=== PATIENT | male | born 1940 | race Caucasian/White ===

== ENCOUNTER 2016-07-28 09:58 | Outpatient (RCR) | payer MEDICARE, OTHER | END 2016-08-08 09:41 | disposition home or self-care (01) | LOC: PT 09:58 | DX: M54.16 Radiculopathy, lumbar region (principal) ==

== ENCOUNTER 2020-10-04 03:33 | Emergency (ER) | payer MEDICARE, OTHER ==
[2020-10-04 03:53] LABS: HEMATOCRIT 34.7 % (42.0-52.0); HEMOGLOBIN 11.2 g/dL (13.5-18.0); MEAN CELL VOLUME 93 fl (78-100); MEAN CORPUSCULAR HEMOGLOBIN 30 pg (27-31); MEAN CORPUSCULAR HGB CONC 32 g/dL (33-37); MEAN PLATELET VOLUME 10.1 fl (7.4-10.4); MONO # 0.5 (0.20-0.80); PLATELET COUNT 250 K/mm3 (130-400); RED BLOOD COUNT 3.72 M/mm3 (4.20-5.60); RED CELL DISTRIBUTION WIDTH 14.4 % (11.5-14.5)
[2020-10-04 03:58] LABS: LYMPH# 7.4 (1.50-4.00)
[2020-10-04 04:03] LABS: ALBUMIN 4.3 g/dL (3.4-4.8)
[2020-10-04 04:04] LABS: CALCIUM 9.6 mg/dL (8.3-10.5)
[2020-10-04 04:06] LABS: TOTAL PROTEIN 7.7 g/dL (6.2-8.1)
[2020-10-04 04:07] LABS: TOTAL BILIRUBIN 0.3 mg/dL (0.2-1.2)
[2020-10-04] MEDS ORDERED: LOSARTAN POTASS50 M1 PO (04:16)
[2020-10-04] MEDS ORDERED: HCTZ 25MG25 MG PO (04:16)
[2020-10-04 08:31] VITALS: BP 157/74
[2020-10-05] MEDS ORDERED: ZOFRAN ODT4 MG PO (08:39)
[2020-10-05] MEDS ORDERED: [UNRECOGNIZED DRUG - OTHER] PO (08:40)
[2020-10-05] MEDS ORDERED: VIBRAMYCIN HYC100 MG PO (08:40)
== END 2020-10-04 07:52 | disposition other institution (70) ==
LOC: ED 03:33 → MED/SURG 05:54 → ED 07:52
PROVIDERS: Physician Assistant
DX: J18.9 Pneumonia, unspecified organism (principal); D72.829 Elevated white blood cell count, unspecified; R42 Dizziness and giddiness; R10.84 Generalized abdominal pain; E11.9 Type 2 diabetes mellitus without complications; I10 Essential (primary) hypertension; Z20.822 Contact with and (suspected) exposure to COVID-19; Z79.899 Other long term (current) drug therapy
CPT/HCPCS: J1200; J1650; J1885; J2405; J2550; J3010; J3360; J7030

== ENCOUNTER 2020-10-04 07:52 | Inpatient (IN) | payer MEDICARE, OTHER ==
[~2020-10-04 07:52] MED LIST: HCTZ 25MG25 MG PO; LOSARTAN POTASS50 M1 PO
[2020-10-04 08:25] VITALS: BP 152/79
[2020-10-04 09:01] LABS: URINE COLOR YELLOW
[2020-10-04 09:02] LABS: URINE APPEARANCE CLEAR; URINE BILIRUBIN NEGATIVE (NEGATIVE); URINE BLOOD 50 ery/uL (NEGATIVE); URINE KETONE NEGATIVE (NEGATIVE); URINE LEUKOCYTE ESTERASE NEGATIVE (NEGATIVE); URINE NITRATE NEGATIVE (NEGATIVE); URINE PROTEIN(semi-quant) NEGATIVE (NEGATIVE); URINE UROBILINOGEN NORMAL (NORMAL); URINE WBC 0-1 /hpf (0-3)
[2020-10-04 10:20] VITALS: BP 146/70
[2020-10-04 13:42] LABS: EOS # 0.1 (0.04-0.40); EOS % 0.5 % (0.0-4.0); HEMOGLOBIN 10.2 g/dL (13.5-18.0); MEAN CELL VOLUME 95 fl (78-100); MEAN CORPUSCULAR HEMOGLOBIN 30 pg (27-31); MEAN CORPUSCULAR HGB CONC 32 g/dL (33-37); MEAN PLATELET VOLUME 9.5 fl (7.4-10.4); MONO # 1.1 (0.20-0.80); NEU # 7.5 (1.40-6.50); PLATELET COUNT 228 K/mm3 (130-400); RED BLOOD COUNT 3.38 M/mm3 (4.20-5.60); RED CELL DISTRIBUTION WIDTH 14.7 % (11.5-14.5); WHITE BLOOD COUNT 16.2 K/mm3 (4.8-10.8)
[2020-10-04 13:43] LABS: LYMPH# 7.6 (1.50-4.00)
[2020-10-04 14:19] VITALS: BP 130/65
[2020-10-04 17:52] VITALS: BP 134/60
[2020-10-04 22:40] VITALS: BP 109/46
[2020-10-05 02:08] VITALS: BP 129/65
[2020-10-05 06:08] VITALS: BP 137/65
[2020-10-05 07:10] LABS: HEMOGLOBIN 9.5 g/dL (13.5-18.0); MEAN CELL VOLUME 96 fl (78-100); MEAN CORPUSCULAR HEMOGLOBIN 30 pg (27-31); MEAN CORPUSCULAR HGB CONC 32 g/dL (33-37); MEAN PLATELET VOLUME 10.3 fl (7.4-10.4); PLATELET COUNT 221 K/mm3 (130-400); RED BLOOD COUNT 3.12 M/mm3 (4.20-5.60); RED CELL DISTRIBUTION WIDTH 14.9 % (11.5-14.5); WHITE BLOOD COUNT 14.2 K/mm3 (4.8-10.8)
[2020-10-05 07:34] LABS: POTASSIUM 4.6 mmol/L (3.5-5.1)
[2020-10-05 07:35] LABS: CALCIUM 8.5 mg/dL (8.3-10.5)
[2020-10-05 07:51] LABS: LYMPHOCYTE 62 % (20-51); MONOCYTE 6 % (3-10); NEUTROPHILS 29 % (42-75)
[2020-10-05 07:59] LABS: OVALOCYTES 1+
[2020-10-05] MEDS ORDERED: ZOFRAN ODT4 MG PO (08:39)
[2020-10-05] MEDS ORDERED: VIBRAMYCIN HYC100 MG PO (08:40)
[2020-10-05] MEDS ORDERED: [UNRECOGNIZED DRUG - OTHER] PO (08:40)
== END 2020-10-05 09:56 | disposition home or self-care (01) | DRG 195 ==
LOC: MED/SURG 07:52
PROVIDERS: ADMIT Physician Assistant
DX: J18.9 Pneumonia, unspecified organism (principal); E11.9 Type 2 diabetes mellitus without complications; I10 Essential (primary) hypertension; E86.0 Dehydration; N28.9 Disorder of kidney and ureter, unspecified; R11.2 Nausea with vomiting, unspecified; R42 Dizziness and giddiness; D72.829 Elevated white blood cell count, unspecified; R10.84 Generalized abdominal pain; Z20.822 Contact with and (suspected) exposure to COVID-19; Z79.899 Other long term (current) drug therapy
CPT/HCPCS: C9113; J0696; J1200; J1650; J1885; J2405; J2550; J3010; J3360; J7030

== ENCOUNTER 2020-10-07 11:55 | Emergency (ER) | payer MEDICARE, OTHER ==
[~2020-10-07 11:55] MED LIST changes: +VIBRAMYCIN HYC100 MG PO; +ZOFRAN ODT4 MG PO; +[UNRECOGNIZED DRUG - OTHER] PO
[2020-10-07 12:50] LABS: HEMATOCRIT 34.5 % (42.0-52.0); HEMOGLOBIN 11.4 g/dL (13.5-18.0); MEAN CELL VOLUME 91 fl (78-100); MEAN CORPUSCULAR HEMOGLOBIN 30 pg (27-31); MEAN CORPUSCULAR HGB CONC 33 g/dL (33-37); MEAN PLATELET VOLUME 10.5 fl (7.4-10.4); PLATELET COUNT 278 K/mm3 (130-400); RED BLOOD COUNT 3.78 M/mm3 (4.20-5.60); RED CELL DISTRIBUTION WIDTH 14.3 % (11.5-14.5)
[2020-10-07 13:02] LABS: POTASSIUM 4.2 mmol/L (3.5-5.1); SODIUM 141 mmol/L (136-145)
[2020-10-07 13:04] LABS: CALCIUM 9.9 mg/dL (8.3-10.5)
[2020-10-07 13:05] LABS: GLUCOSE 158 mg/dL (75-110); TOTAL PROTEIN 7.2 g/dL (6.2-8.1)
[2020-10-07 13:06] LABS: CARBON DIOXIDE 25 mmol/L (23-31)
[2020-10-07 13:07] LABS: TOTAL BILIRUBIN 0.4 mg/dL (0.2-1.2)
[2020-10-07 13:08] LABS: MONOCYTE 4 % (3-10); NEUTROPHILS 35 % (42-75)
[2020-10-07 13:10] LABS: AST-SGOT 19 U/L (5-34); LYMPHOCYTE 60 % (20-51)
[2020-10-07 13:11] LABS: ALT/SGPT 21 U/L (0-55)
[2020-10-07 13:18] LABS: TROPONIN-I < 0.03 ng/mL (<0.030)
[2020-10-07 13:22] LABS: URINE APPEARANCE CLEAR; URINE BILIRUBIN NEGATIVE (NEGATIVE); URINE BLOOD TRACE (NEGATIVE); URINE COLOR YELLOW; URINE GLUCOSE NEGATIVE (NEGATIVE); URINE KETONE NEGATIVE (NEGATIVE); URINE LEUKOCYTE ESTERASE NEGATIVE (NEGATIVE); URINE NITRATE NEGATIVE (NEGATIVE); URINE PROTEIN(semi-quant) NEGATIVE (NEGATIVE); URINE UROBILINOGEN NORMAL (NORMAL); URINE WBC 0-1 /hpf (0-3)
[2020-10-07] MEDS ORDERED: AMLODIPINE BESYL5 MG PO (16:40)
[2020-10-07 17:02] VITALS: BP 169/79
== END 2020-10-07 16:49 | disposition home or self-care (01) ==
LOC: ED 11:55
PROVIDERS: Family Medicine
DX: I10 Essential (primary) hypertension (principal); D72.820 Lymphocytosis (symptomatic); R42 Dizziness and giddiness; Z79.899 Other long term (current) drug therapy

== ENCOUNTER → 2020-12-26 | Outpatient (CLI) | payer MEDICARE, OTHER ==
[~2020-12-26] MED LIST changes: +AMLODIPINE BESYL5 MG PO
[2020-12-26 09:36] LABS: HEMATOCRIT 36.6 % (42.0-52.0); HEMOGLOBIN 11.8 g/dL (13.5-18.0); MEAN CELL VOLUME 96 fl (78-100); MEAN CORPUSCULAR HEMOGLOBIN 31 pg (27-31); MEAN CORPUSCULAR HGB CONC 32 g/dL (33-37); MEAN PLATELET VOLUME 10.2 fl (7.4-10.4); PLATELET COUNT 297 K/mm3 (130-400); RED BLOOD COUNT 3.83 M/mm3 (4.20-5.60); WHITE BLOOD COUNT 17.6 K/mm3 (4.8-10.8)
[2020-12-26 09:40] LABS: ALBUMIN 4.3 g/dL (3.4-4.8); POTASSIUM 4.6 mmol/L (3.5-5.1)
[2020-12-26 09:41] LABS: CALCIUM 9.9 mg/dL (8.3-10.5)
[2020-12-26 09:43] LABS: TOTAL PROTEIN 7.8 g/dL (6.2-8.1)
[2020-12-26 09:44] LABS: TOTAL BILIRUBIN 0.4 mg/dL (0.2-1.2)
[2020-12-26 12:50] LABS: LYMPHOCYTE 56 % (20-51); MONOCYTE 4 % (3-10); NEUTROPHILS 38 % (42-75)
== END ==
LOC: LAB 08:58
PROVIDERS: Internal Medicine
DX: C91.10 Chronic lymphocytic leukemia of B-cell type not having achieved remission (principal)

== ENCOUNTER → 2020-12-28 | Outpatient (CLI) | payer MEDICARE, OTHER | LOC: RAD 08:50 | DX: K76.9 Liver disease, unspecified (principal); C91.10 Chronic lymphocytic leukemia of B-cell type not having achieved remission | CPT/HCPCS: Q9967 ==

== ENCOUNTER → 2021-01-15 | Outpatient (CLI) | payer MEDICARE, OTHER | LOC: RAD 07:32 | DX: K76.9 Liver disease, unspecified (principal); K76.0 Fatty (change of) liver, not elsewhere classified; C91.10 Chronic lymphocytic leukemia of B-cell type not having achieved remission | CPT/HCPCS: A9585 ==

== ENCOUNTER → 2021-04-08 | Outpatient (CLI) | payer MEDICARE, OTHER ==
[2021-04-08 08:21] LABS: HEMATOCRIT 33.7 % (42.0-52.0); HEMOGLOBIN 10.8 g/dL (13.5-18.0); MEAN CELL VOLUME 93 fl (78-100); MEAN CORPUSCULAR HEMOGLOBIN 30 pg (27-31); MEAN CORPUSCULAR HGB CONC 32 g/dL (33-37); MEAN PLATELET VOLUME 10.2 fl (7.4-10.4); PLATELET COUNT 271 K/mm3 (130-400); RED BLOOD COUNT 3.61 M/mm3 (4.20-5.60); RED CELL DISTRIBUTION WIDTH 13.8 % (11.5-14.5); WHITE BLOOD COUNT 14.9 K/mm3 (4.8-10.8)
[2021-04-08 09:43] LABS: ALBUMIN 3.8 g/dL (3.4-4.8); POTASSIUM 5.2 mmol/L (3.5-5.1)
[2021-04-08 09:45] LABS: TOTAL PROTEIN 7.5 g/dL (6.2-8.1)
[2021-04-08 09:47] LABS: TOTAL BILIRUBIN 0.3 mg/dL (0.2-1.2)
[2021-04-08 10:54] LABS: LYMPHOCYTE 70 % (20-51); MONOCYTE 9 % (3-10); NEUTROPHILS 20 % (42-75)
[2021-04-08 11:19] LABS: CALCIUM 9.8 mg/dL (8.3-10.5)
== END ==
LOC: LAB 07:52
PROVIDERS: Internal Medicine
DX: C91.10 Chronic lymphocytic leukemia of B-cell type not having achieved remission (principal)

== ENCOUNTER → 2021-07-10 | Outpatient (CLI) | payer MEDICARE, OTHER ==
[2021-07-10 08:34] LABS: HEMATOCRIT 36.7 % (42.0-52.0); HEMOGLOBIN 11.9 g/dL (13.5-18.0); MEAN CELL VOLUME 92 fl (78-100); MEAN CORPUSCULAR HEMOGLOBIN 30 pg (27-31); MEAN CORPUSCULAR HGB CONC 32 g/dL (33-37); PLATELET COUNT 269 K/mm3 (130-400); RED CELL DISTRIBUTION WIDTH 14.2 % (11.5-14.5); WHITE BLOOD COUNT 11.1 K/mm3 (4.8-10.8)
[2021-07-10 08:35] LABS: ALBUMIN 4.1 g/dL (3.4-4.8)
[2021-07-10 08:36] LABS: POTASSIUM 4.5 mmol/L (3.5-5.1)
[2021-07-10 08:37] LABS: CALCIUM 9.8 mg/dL (8.3-10.5)
[2021-07-10 08:38] LABS: TOTAL PROTEIN 7.5 g/dL (6.2-8.1)
[2021-07-10 08:40] LABS: TOTAL BILIRUBIN 0.3 mg/dL (0.2-1.2)
[2021-07-10 09:36] LABS: LYMPHOCYTE 73 % (20-51); MONOCYTE 9 % (3-10); NEUTROPHILS 17 % (42-75)
[2021-07-10 23:12] LABS: FOLATE (FOLIC ACID) 9.6 ng/mL (2.0-20.0)
[2021-07-12 08:03] LABS: KAPPA LAMBDA RATIO 1.58 ratio (())
== END ==
LOC: LAB 07:54
PROVIDERS: Internal Medicine
DX: C91.10 Chronic lymphocytic leukemia of B-cell type not having achieved remission (principal)

== ENCOUNTER → 2021-07-12 | Outpatient (CLI) | payer MEDICARE, OTHER | LOC: RAD 08:51 | DX: C91.10 Chronic lymphocytic leukemia of B-cell type not having achieved remission (principal) | CPT/HCPCS: Q9967 ==

== ENCOUNTER → 2021-11-05 | Outpatient (CLI) | payer MEDICARE, OTHER ==
[2021-11-05 08:25] LABS: HEMATOCRIT 33.7 % (42.0-52.0); HEMOGLOBIN 11.2 g/dL (13.5-18.0); MEAN CELL VOLUME 92 fl (78-100); MEAN CORPUSCULAR HEMOGLOBIN 31 pg (27-31); MEAN CORPUSCULAR HGB CONC 33 g/dL (33-37); MEAN PLATELET VOLUME 10.3 fl (7.4-10.4); PLATELET COUNT 265 K/mm3 (130-400); RED BLOOD COUNT 3.65 M/mm3 (4.20-5.60); RED CELL DISTRIBUTION WIDTH 13.8 % (11.5-14.5); WHITE BLOOD COUNT 12.7 K/mm3 (4.8-10.8)
[2021-11-05 08:30] LABS: ALBUMIN 4.4 g/dL (3.4-4.8); POTASSIUM 4.7 mmol/L (3.5-5.1)
[2021-11-05 08:31] LABS: CALCIUM 10.1 mg/dL (8.3-10.5)
[2021-11-05 08:32] LABS: TOTAL PROTEIN 7.6 g/dL (6.2-8.1)
[2021-11-05 08:34] LABS: TOTAL BILIRUBIN 0.4 mg/dL (0.2-1.2)
[2021-11-05 09:37] LABS: NEUTROPHILS 28 % (42-75)
[2021-11-05 09:38] LABS: LYMPHOCYTE 64 % (20-51); MONOCYTE 6 % (3-10)
== END ==
LOC: LAB 08:04
PROVIDERS: Internal Medicine
DX: C91.10 Chronic lymphocytic leukemia of B-cell type not having achieved remission (principal)

== ENCOUNTER → 2023-05-20 | Outpatient (CLI) | payer MEDICARE, OTHER ==
[2023-05-20 08:34] LABS: HEMATOCRIT 37.2 % (42.0-52.0); MEAN CELL VOLUME 96 fl (78-100); MEAN CORPUSCULAR HEMOGLOBIN 31 pg (27-31); MEAN CORPUSCULAR HGB CONC 32 g/dL (33-37); MEAN PLATELET VOLUME 10.2 fl (7.4-10.4); PLATELET COUNT 298 K/mm3 (130-400); RED BLOOD COUNT 3.87 M/mm3 (4.20-5.60); RED CELL DISTRIBUTION WIDTH 13.9 % (11.5-14.5); WHITE BLOOD COUNT 12.9 K/mm3 (4.8-10.8)
[2023-05-20 08:41] LABS: ALBUMIN 4.3 g/dL (3.4-4.8)
[2023-05-20 08:44] LABS: TOTAL PROTEIN 7.7 g/dL (6.2-8.1)
[2023-05-20 08:45] LABS: TOTAL BILIRUBIN 0.4 mg/dL (0.2-1.2)
[2023-05-20 08:56] LABS: LYMPHOCYTE 54 % (20-51); MONOCYTE 8 % (3-10); NEUTROPHILS 33 % (42-75)
== END ==
LOC: LAB 08:08
PROVIDERS: Internal Medicine
DX: C91.10 Chronic lymphocytic leukemia of B-cell type not having achieved remission (principal)

== ENCOUNTER → 2023-11-18 | Outpatient (CLI) | payer MEDICARE, OTHER ==
[2023-11-18 08:13] LABS: HEMATOCRIT 35.4 % (42.0-52.0); HEMOGLOBIN 11.6 g/dL (13.5-18.0); MEAN CELL VOLUME 97 fl (78-100); MEAN CORPUSCULAR HEMOGLOBIN 32 pg (27-31); MEAN CORPUSCULAR HGB CONC 33 g/dL (33-37); MEAN PLATELET VOLUME 9.8 fl (7.4-10.4); PLATELET COUNT 292 K/mm3 (130-400); RED BLOOD COUNT 3.67 M/mm3 (4.20-5.60); RED CELL DISTRIBUTION WIDTH 13.5 % (11.5-14.5)
[2023-11-18 08:16] LABS: ALBUMIN 4.3 g/dL (3.4-4.8)
[2023-11-18 08:19] LABS: TOTAL PROTEIN 7.2 g/dL (6.2-8.1)
[2023-11-18 08:21] LABS: TOTAL BILIRUBIN 0.3 mg/dL (0.2-1.2)
[2023-11-18 08:35] LABS: BAND 1 % (0-10); NEUTROPHILS 32 % (42-75)
[2023-11-18 08:36] LABS: LYMPHOCYTE 54 % (20-51); MONOCYTE 5 % (3-10)
== END ==
LOC: LAB 07:56
PROVIDERS: Internal Medicine
DX: C91.10 Chronic lymphocytic leukemia of B-cell type not having achieved remission (principal)

== ENCOUNTER → 2024-06-22 | Outpatient (CLI) | payer MEDICARE, OTHER ==
[2024-06-22 09:14] LABS: ALBUMIN 4.4 g/dL (3.4-4.8)
[2024-06-22 09:15] LABS: CALCIUM 10.1 mg/dL (8.3-10.5)
[2024-06-22 09:17] LABS: TOTAL PROTEIN 7.6 g/dL (6.2-8.1)
[2024-06-22 09:18] LABS: TOTAL BILIRUBIN 0.4 mg/dL (0.2-1.2)
[2024-06-22 09:43] LABS: HEMATOCRIT 36.2 % (42.0-52.0); HEMOGLOBIN 11.8 g/dL (13.5-18.0); MEAN CELL VOLUME 97 fl (78-100); MEAN CORPUSCULAR HEMOGLOBIN 32 pg (27-31); MEAN CORPUSCULAR HGB CONC 33 g/dL (33-37); MEAN PLATELET VOLUME 9.8 fl (7.4-10.4); PLATELET COUNT 313 K/mm3 (130-400); RED BLOOD COUNT 3.73 M/mm3 (4.20-5.60); RED CELL DISTRIBUTION WIDTH 14.1 % (11.5-14.5)
[2024-06-22 10:21] LABS: BAND 3 % (0-10); LYMPHOCYTE 55 % (20-51); MONOCYTE 6 % (3-10); NEUTROPHILS 35 % (42-75)
== END ==
LOC: LAB 08:57
PROVIDERS: Nurse Practitioner
DX: C91.10 Chronic lymphocytic leukemia of B-cell type not having achieved remission (principal)